=== PATIENT | female | born 1990 | race African-American/Black ===

== ENCOUNTER 2016-08-17 22:16 | Emergency (ER) | payer SELFPAY ==
[~2016-08-17] VITALS: Ht 162.6 cm; Wt 50.0 kg
[~2016-08-17 22:16] MED LIST: AMOXICILLIN500 MG OR; AMOXICILLIN500 MG PO; IBUPROFEN400 MG OR; IBUPROFEN600 MG PO; NAPROSYN500 MG PO; ROBITUSSIN AC10 ML PO; ULTRAM50 MG PO; tylenol#3 OR
[2016-08-17] MEDS ORDERED: AMOXICILLIN500 MG PO (23:09)
[2016-08-17] MEDS ORDERED: ULTRAM50 M1 PO (23:09)
[2016-08-17 23:21] VITALS: BP 136/49
== END 2016-08-17 23:22 | disposition home or self-care (01) | DRG 159 ==
LOC: ED 22:16
DX: K04.7 Periapical abscess without sinus (principal); F17.210 Nicotine dependence, cigarettes, uncomplicated

== ENCOUNTER 2016-08-18 22:02 | Emergency (ER) | payer SELFPAY ==
[~2016-08-18] VITALS: Ht 162.6 cm; Wt 54.0 kg
[~2016-08-18 22:02] MED LIST changes: +ULTRAM50 M1 PO
[2016-08-19 00:38] VITALS: BP 150/96
== END 2016-08-19 00:38 | disposition home or self-care (01) | DRG 153 ==
LOC: ED 22:02
DX: J02.0 Streptococcal pharyngitis (principal); R51 Headache